=== PATIENT | female | born 1980 | race African-American/Black ===

== ENCOUNTER 2019-07-20 20:03 | Inpatient (IN) ==
[2019-07-20] MEDS ORDERED: BUTORPHANOL 2 MG/ML VIAL IV PRN (20:15)
[2019-07-20] MEDS ORDERED: MEPERIDINE 50 MG/1 ML VIAL IV PRN (20:15)
[2019-07-20] MEDS ORDERED: ONDANSETRON 4 MG/2 ML VIAL IV PRN (20:15)
[2019-07-20] MEDS ORDERED: DINOPROSTONE 10 MG VAG.INSERT VAG ONE (20:30)
[2019-07-20 20:39] LABS: Basophils % 0.3 % (0.0-0.8); Eosinophils # 0.1 10*3/uL (0.0-0.87); Eosinophils % 0.5 % (0.00-10.9); Hematocrit 41.6 VOL% (35.7-47.0); Hemoglobin 13.6 GM/DL (12.0-16.0); Immature Granulocytes % 0.5 %; Immature Granulocytes Absolute 0.06 #; Lymphocytes # 3.2 10*3/uL (1.4-4.0); Lymphocytes % 29.3 % (21.3-54.2); Mean Corpuscular HGB Conc 32.7 GM/DL (32-36); Mean Platelet Volume 10.6 FL (9.6-12.0); Monocytes % 7.4 % (1.7-12.7); Platelet Count 198 T/CUMM (130-400); Red Blood Count 4.57 MC/CUMM (3.8-5.5); Red Cell Distribution Width 13.2 % (9.3-17.3)
[2019-07-20] MEDS: LACTATED RINGERS 1,000 ML IV SCH (20:40)
[2019-07-20 20:59] LABS: Alanine Aminotransferase 9 U/L (13-56); Albumin 2.4 G/DL (3.4-5.0); Alkaline Phosphatase 149 U/L (45-117); Aspartate Amino Transferase 13 U/L (0-37); Bilirubin,Total < 0.39 MG/DL (0.2-1.0); Blood Urea Nitrogen 5 MG/DL (7-18); Calcium 9.1 MG/DL (8.5-10.1); Estimated Glom Filtration Rate 180 ML/MIN; Glucose 150 MG/DL (74-106); Osmolality,Calculated 269.1 MOS/KG (273-304); Total Protein 7.3 G/DL (6.4-8.3)
[2019-07-20] MEDS ORDERED: GLUCAGON 1 MG VIAL IM PRN (21:12)
[2019-07-20] MEDS ORDERED: DEXTROSE 50% 25 GM/50 ML VIAL IV PRN (21:12)
[2019-07-20] MEDS ORDERED: AMPICILLIN INJ 2,000 MG in SODIUM CHLORIDE 0.9% 100 ML IV ONE (22:00)
[2019-07-20] MEDS ORDERED: ACETAMINOPHEN 500 MG TABLET PO ONE (22:18)
[2019-07-21] MEDS: AMPICILLIN INJ 1,000 MG in SODIUM CHLORIDE 0.9% 100 ML IV SCH ×4 (02:06→16:30)
[2019-07-21] MEDS ORDERED: LABETALOL 200 MG TABLET ONE (06:15)
[2019-07-21] MEDS: LABETALOL 200 MG TABLET PO SCH ×3 (06:21→20:52)
[2019-07-21] MEDS ORDERED: hydrALAZINE 20 MG/1 ML VIAL IV ONE ×2 (07:28→16:03)
[2019-07-21] MEDS: LACTATED RINGERS 1,000 ML IV SCH (11:15)
[2019-07-21] MEDS ORDERED: MAGNESIUM SULF RIDER 4 GM in PREMIX 1 EACH IV ONE (13:56)
[2019-07-21] MEDS: MAGNESIUM SULF DRIP 40 GM/1,000 ML ML IV SCH (15:30)
[2019-07-21] MEDS: OXYTOCIN/LR 20 UNIT/1,000 ML BAG IV SCH (15:35)
[2019-07-21] MEDS ORDERED: LACTATED RINGERS 1,000 ML IV SCH (16:00)
[2019-07-21] MEDS ORDERED: hydrOXYzine HCL 25 MG/1 ML VIAL IM PRN (17:10)
[2019-07-21] MEDS ORDERED: ONDANSETRON 4 MG/2 ML VIAL IV ONE (17:10)
[2019-07-21] MEDS ORDERED: PROMETHAZINE 25 MG/1 ML VIAL IM ONE (17:10)
[2019-07-21] MEDS ORDERED: CITRIC ACID/SODIUM CITRATE 30 ML UDCUP PO ONE (17:10)
[2019-07-21] MEDS ORDERED: ePHEDrine 50 MG/ML AMP IV PRN (17:10)
[2019-07-21] MEDS ORDERED: diphenhydrAMINE 50 MG/1 ML VIAL IV PRN ×2 (17:10)
[2019-07-21] MEDS ORDERED: NALOXONE 0.4 MG/ML VIAL IV PRN (17:10)
[2019-07-21] MEDS ORDERED: FAMOTIDINE 20 MG/2 ML VIAL IV ONE (17:10)
[2019-07-21] MEDS ORDERED: CITRIC ACID/SODIUM CITRATE 30 ML UDCUP ONE (17:16)
[2019-07-21] MEDS ORDERED: fentaNYL 2 MCG/ROPIV 0.2% EPID 100 ML EPIDURAL SCH (17:30)
[2019-07-21] MEDS ORDERED: LIDOCAINE 2% 20 ML VIAL ONE (17:46)
[2019-07-21] MEDS ORDERED: ceFAZolin 3,000 MG in SYRINGE 1 EACH IV ONE (18:23)
[2019-07-21] MEDS ORDERED: OXYTOCIN 10 UNIT/ML VIAL IM ONE (18:23)
[2019-07-21 19:01] LABS: Apearance,Urine CLEAR (Clear); Bacteria,Urine Occasional /HPF (Few); Bilirubin,Urine Negative (Negative); Blood, Urine Small mg/dL (Negative); Glucose,Urine (UA) Negative (Negative); Ketones,Urine 5 mg/dL (Negative); Mucus,Urine Few /LPF (Occasional); Nitrite,Urine Negative (Negative); Protein,Urine Negative; RBC,Urine 1 /HPF (0-4); Squamous Epithelial Cell,Urine Occasional /HPF (0-10); Transitional Epi Cells,Urine Occasional /HPF (<1); Urine Color Yellow (Yellow); Urine Specific Gravity 1.012 (1.001-1.035); Urine Urobilinogen < 2.0 EU/DL (0.2-1.0)
[2019-07-21] MEDS ORDERED: OXYTOCIN/LR 30 UNIT/1,000 ML BAG IV ONE (19:14)
[2019-07-21] MEDS ORDERED: OXYTOCIN/LR 20 UNIT/1,000 ML BAG IV ONE (20:00)
[2019-07-21] MEDS ORDERED: SODIUM BICARBONATE 10 MEQ/10 ML SYRINGE IV ONE (20:18)
[2019-07-21] MEDS ORDERED: propofoL 200 MG/20 ML VIAL IV ONE (20:18)
[2019-07-21] MEDS ORDERED: SEVOFLURANE 1 UNIT/15 MINUTE INH ONE (20:18)
[2019-07-21] MEDS ORDERED: MIDAZOLAM 2 MG/2 ML VIAL ONE (20:18)
[2019-07-21] MEDS ORDERED: LIDOCAINE 2% 5 ML VIAL ONE (20:18)
[2019-07-21] MEDS ORDERED: ONDANSETRON 4 MG/2 ML VIAL ONE (20:19)
[2019-07-21] MEDS ORDERED: GLYCOPYRROLATE 0.4 MG/2 ML VIAL ONE (20:19)
[2019-07-21] MEDS ORDERED: NEOSTIGMINE 10 MG/10 ML VIAL ONE (20:19)
[2019-07-21] MEDS ORDERED: fentaNYL 100 MCG/2 ML VIAL ONE (20:19)
[2019-07-21] MEDS ORDERED: LIDOCAINE MPF 2% /EPI 20 ML VIAL ONE (20:19)
[2019-07-21] MEDS ORDERED: LACTATED RINGERS 1,000 ML IV ONE (20:19)
[2019-07-21] MEDS ORDERED: SUCCINYLCHOLINE 200 MG/10 ML VIAL ONE (20:19)
[2019-07-21] MEDS ORDERED: ROCURONIUM 100 MG/10 ML VIAL IV ONE (20:19)
[2019-07-21] MEDS ORDERED: HYDROmorphone 2 MG/1 ML VIAL IV PRN (20:24)
[2019-07-21] MEDS ORDERED: SIMETHICONE CHEW 80 MG TABLET PO PRN (20:42)
[2019-07-21] MEDS ORDERED: ACETAMINOPHEN 325 MG TABLET PO PRN (20:42)
[2019-07-21] MEDS ORDERED: RHO(D) IMMUNE GLOBULIN 300 MCG SYRINGE IM ONE (20:42)
[2019-07-21] MEDS: KETOROLAC 30 MG/1 ML VIAL IM SCH (20:48)
[2019-07-22] MEDS: INSULIN REGULAR 100 UNIT/ML SUBCUT SCH ×4 (00:10→23:59)
[2019-07-22] MEDS: KETOROLAC 30 MG/1 ML VIAL IM SCH ×3 (03:05→15:05)
[2019-07-22 06:28] LABS: Basophils % 0.3 % (0.0-0.8); Eosinophils % 0.1 % (0.00-10.9); Hematocrit 33.8 VOL% (35.7-47.0); Immature Granulocytes % 0.6 %; Immature Granulocytes Absolute 0.09 #; Lymphocytes # 2.6 10*3/uL (1.4-4.0); Lymphocytes % 17.7 % (21.3-54.2); Mean Corpuscular HGB Conc 32.5 GM/DL (32-36); Mean Corpuscular Volume 92.1 FL (87-102); Mean Platelet Volume 10.9 FL (9.6-12.0); Monocytes % 7.5 % (1.7-12.7); Neutrophils % 73.8 % (38.7-73.9); Platelet Count 178 T/CUMM (130-400); Red Blood Count 3.67 MC/CUMM (3.8-5.5); Red Cell Distribution Width 13.3 % (9.3-17.3); White Blood Count 14.4 T/CUMM (4-12)
[2019-07-22] MEDS: LABETALOL 200 MG TABLET PO SCH ×2 (09:12→21:26)
[2019-07-22] MEDS: MULTIVITAMIN (PRENATAL) TABLET PO SCH (09:12)
[2019-07-22] MEDS: DOCUSATE SODIUM 100 MG CAPSULE PO SCH ×3 (09:12→21:26)
[2019-07-22] MEDS: LACTATED RINGERS 1,000 ML IV SCH ×2 (09:41→10:55)
[2019-07-22] MEDS: MAGNESIUM SULF DRIP 40 GM/1,000 ML ML IV SCH (10:56)
[2019-07-22] MEDS ORDERED: DEXTROSE 10% 250 ML BAG IV PRN (12:27)
[2019-07-22] MEDS ORDERED: GLUCAGON 1 MG VIAL IM PRN (12:27)
[2019-07-22] MEDS: OXYTOCIN/LR 20 UNIT/1,000 ML BAG IV SCH (15:31)
[2019-07-23] MEDS: IBUPROFEN 800 MG TABLET PO PRN ×2 (03:52→22:58)
[2019-07-23] MEDS: INSULIN REGULAR 100 UNIT/ML SUBCUT SCH ×3 (06:15→17:42)
[2019-07-23 06:17] LABS: Basophils % 0.1 % (0.0-0.8); Eosinophils % 0.1 % (0.00-10.9); Hematocrit 29.2 VOL% (35.7-47.0); Hemoglobin 9.5 GM/DL (12.0-16.0); Immature Granulocytes % 0.7 %; Immature Granulocytes Absolute 0.09 #; Lymphocytes # 1.9 10*3/uL (1.4-4.0); Lymphocytes % 14.1 % (21.3-54.2); Mean Corpuscular HGB Conc 32.5 GM/DL (32-36); Mean Corpuscular Volume 91.8 FL (87-102); Monocytes % 6.8 % (1.7-12.7); Neutrophils % 78.2 % (38.7-73.9); Platelet Count 158 T/CUMM (130-400); Red Blood Count 3.18 MC/CUMM (3.8-5.5); Red Cell Distribution Width 13.6 % (9.3-17.3); White Blood Count 13.7 T/CUMM (4-12)
[2019-07-23] MEDS: MULTIVITAMIN (PRENATAL) TABLET PO SCH (09:48)
[2019-07-23] MEDS: DOCUSATE SODIUM 100 MG CAPSULE PO SCH ×2 (09:48→21:15)
[2019-07-23] MEDS: LABETALOL 200 MG TABLET PO SCH ×2 (09:48→21:15)
[2019-07-23] MEDS: MAGNESIUM HYDROXIDE SUSP 30 ML UDCUP PO PRN ×2 (11:07→21:15)
[2019-07-23] MEDS: metFORMIN 500 MG TABLET PO SCH (17:32)
[2019-07-24] MEDS: INSULIN REGULAR 100 UNIT/ML SUBCUT SCH ×3 (00:25→12:09)
[2019-07-24 05:35] LABS: Basophils # 0.1 10*3/uL (0.0-0.2); Basophils % 0.4 % (0.0-0.8); Eosinophils # 0.1 10*3/uL (0.0-0.87); Eosinophils % 0.7 % (0.00-10.9); Hematocrit 30.5 VOL% (35.7-47.0); Hemoglobin 9.9 GM/DL (12.0-16.0); Immature Granulocytes % 0.7 %; Lymphocytes # 3.5 10*3/uL (1.4-4.0); Lymphocytes % 25.2 % (21.3-54.2); Mean Corpuscular HGB Conc 32.5 GM/DL (32-36); Mean Corpuscular Volume 93.3 FL (87-102); Mean Platelet Volume 10.2 FL (9.6-12.0); Monocytes % 7.3 % (1.7-12.7); Neutrophils % 65.7 % (38.7-73.9); Platelet Count 161 T/CUMM (130-400); Red Blood Count 3.27 MC/CUMM (3.8-5.5); Red Cell Distribution Width 13.5 % (9.3-17.3); White Blood Count 13.8 T/CUMM (4-12)
[2019-07-24 07:17] VITALS: BP 133/70
[2019-07-24] MEDS: DOCUSATE SODIUM 100 MG CAPSULE PO SCH (09:53)
[2019-07-24] MEDS: LABETALOL 200 MG TABLET PO SCH (09:53)
[2019-07-24] MEDS: metFORMIN 500 MG TABLET PO SCH (09:53)
[2019-07-24] MEDS: MULTIVITAMIN (PRENATAL) TABLET PO SCH (09:53)
[2019-07-24] MEDS ORDERED: DIPH/TET/ACEL PERT BOOSTER VACCINE 0.5 ML VIAL IM ONE (11:43)
[2019-07-24] MEDS ORDERED: MEASLES/MUMPS/RUBELLA VACCINE 0.5 ML VIAL SUBCUT ONE (11:43)
== END 2019-07-24 16:20 | disposition home or self-care (01) | DRG 540 ==
LOC: N.LDOUT 20:03 → N.LD 20:07 → N.OB 07-22 20:48
PROVIDERS: ADMIT Obstetrics & Gynecology; ATTEND Obstetrics & Gynecology
PROC: LDCSECT (ICD-10-PCS; 2019-07-21 19:00)